=== PATIENT | male | born 1935 | race Caucasian/White ===

== ENCOUNTER 2016-06-03 16:37 | Observation (INO) | payer MEDICARE, OTHER ==
[~2016-06-03 16:37] MED LIST: 50% Dextrose in Water 50 ML Syringe IVPUSH ONE; Sodium Chloride 0.9% 10 ML Syringe FLUSH PRN
--- NOTE | 2016-06-03 16:39 | EDM.PDOC ---
ED HPI NEURO - General Chief Complaint: Neurological Problem Stated Complaint: AMB Time Seen by Provider: 06/03/16 16:39 Source of Information: Reports: Patient, EMS, Family, Old records, RN, RN notes reviewed History Limitations: Reports: Altered mental status, Physical impairment - History of Present Illness INITIAL COMMENTS - FREE TEXT/NARRATIVE: Patient arrives by ambulance with report that patient became confused during the night and rolled out of bed x3. reported patient was confused this morning and had blood sugar of 56. He ate cereal for breakfast and seemed better , but then later in the day became much more confused and fell again and became combative. Family reports several bouts of confusion with multiple falls. Symptom Onset Date: 06/03/16 Timing/Duration: Reports: Getting worse Location (Neuro Complaint): Reports: other (combative) Quality (Neuro Complaint): Reports: other (combative) Severity: severe Improves with: Reports: None Worsens with: Reports: None Associated Symptoms: Reports: no other symptoms - Related Data Allergies/ADRs: Allergies Allergy/AdvReac Type Severity Reaction Status Date / Time No Known Allergies Allergy Verified 04/02/14 20:55 Home Meds: Home Meds Aspirin [Halfprin] 81 mg PO DAILY 10/07/13 [History] Docusate Sodium [Colace] 50 mg PO DAILY 10/07/13 [History] Multivitamin [Multi Vitamin Daily] 1 tab PO DAILY 10/07/13 [History] Tamsulosin [Tamsulosin 24 Hr] 0.4 mg PO DAILY 10/07/13 [History] Phenazopyridine [Pyridium] 200 mg PO TID PRN 04/02/14 [History] Solifenacin Succinate [Vesicare] 10 mg PO DAILY 04/02/14 [History] Fluticasone/Salmeterol [Advair 500-50] 1 puff INH BID 07/17/14 [History] Diltiazem [Dilacor XR] 240 mg PO DAILY 06/03/16 [History] Furosemide [Furosemide] 20 mg PO DAILY 06/03/16 [History] Warfarin Sodium [Jantoven] 5 mg PO DAILY 06/03/16 [History] glyBURIDE [Micronase] 5 mg PO DAILY 06/03/16 [History] Social & Family History - Family History Family Medical History: Noncontributory - Tobacco Use Smoking Status *Q: Never Smoker Years of Tobacco use: 40 Used Tobacco, but Quit: Yes Month Tobacco Last Used: october Second Hand Smoke Exposure: No - Alcohol Use Days Per Week of Alcohol Use: 0 - Recreational Drug Use Recreational Drug Use: No - Living Situation & Occupation Living situation: Reports: with family Occupation: retired ED ROS GENERAL - Review of Systems Review Of Systems: ROS reveals no pertinent complaints other than HPI. ED EXAM, NEURO - Physical Exam Exam: See Below Exam Limited By: Uncooperative (on arrival combative with hypoglycemia.) General Appearance: other (obese, confused, combative, and actively vomiting. ) Eye Exam: bilateral eye: normal inspection Ears: normal external exam, normal canal, hearing grossly normal, normal TMs Nose: normal inspection, normal mucosa, no blood Throat/Mouth: Other (dry oral membranes) Head Exam: atraumatic, normocephalic Neck: normal inspection, supple, non-tender, full range of motion Respiratory/Chest: other (decreased sounds bilateral bases otherwise clear. ) Cardiovascular: regular rate, rhythm (without murmur) GI/Abdominal: normal bowel sounds, non tender, no distention, other (obese. ) Neurological: other (confused and combative on arrival. Richy and cooperative after Dextrose 50% 1 amp IVP and blood sugar improved from 49 to 193. No deficits. ) Extremities: normal range of motion (full to extremities, back and neck. ) Skin Exam: Other (multiple bruises and superficial abrasions to head, bilateral upper and lower extremities in various stages from subacute to acute. ) EKG INTERPRETATION EKG Date: 06/03/16 Time: 17:01 Rhythm: other (sinus rhythm) Rate (beats/min): 74 [place]: normal P-wave: present QRS: RBBB ST-T: normal QT: normal Course - Vital Signs Last Recorded V/S: Last Vital Signs Temp 36.2 C 06/03/16 16:55 Pulse 75 06/03/16 16:55 Resp 20 06/03/16 16:55 BP 121/66 06/03/16 16:55 Pulse Ox 94 L 06/03/16 16:55 - Orders/Labs/Meds Orders: Active Orders 24 hr Category Date Time Status EKG 12 Lead [EKG Documentation Completion] [RC] STAT Care 06/03/16 16:34 Active Overnight Pulse Oximetry [RC] Click To Edit Care 06/03/16 16:35 Active Peripheral IV Care [RC] . DIRECTED Care 06/03/16 16:35 Active Chest 1V Frontal [CR] Stat Exams 06/03/16 16:34 Taken Head wo Cont [CT] Stat Exams 06/03/16 16:37 Taken CULTURE BLOOD [BC] Stat Lab 06/03/16 16:50 Received CULTURE BLOOD [BC] Stat Lab 06/03/16 16:52 Received Sodium Chloride 0.9% [Normal Saline] 1,000 ml Med 06/03/16 17:43 Active IV .BOLUS Sodium Chloride 0.9% [Saline Flush] Med 06/03/16 16:35 Active 10 ml FLUSH ASDIRECTED PRN Blood Culture x2 Reflex Set [OM.PC] Stat Oth 06/03/16 16:35 Ordered Peripheral IV Insertion Adult [OM.PC] Stat Oth 06/03/16 16:34 Ordered Pulse Oximetry Continuous Monitoring [OM.PC] Routine Oth 06/03/16 16:35 Ordered RT Supplemental Oxygen Titration [RESPCARE] Stat Oth 06/03/16 16:35 Active Medication Orders Sodium Chloride (Normal Saline) 1,000 mls @ 999 mls/hr IV .BOLUS ONE Stop: 06/03/16 18:43 Last Admin: 06/03/16 18:05 Dose: 999 mls/hr Sodium Chloride (Saline Flush) 10 ml FLUSH ASDIRECTED PRN PRN Reason: Keep Vein Open Labs: Laboratory Tests 06/03/16 06/03/16 06/03/16 Range/Units 16:47 16:50 16:50 WBC 8.0 (5.0-10.0) 10^3/uL RBC 4.17 L (4.6-6.2) 10^6/uL Hgb 11.2 L (14.0-18.0) g/dL Hct 36.6 L (40.0-54.0) % MCV 87.8 (80-100) fL MCH 26.9 L (27.0-34.0) pg MCHC 30.6 L (33.0-35.0) g/dL Plt Count 222 (150-450) 10^3/uL Neut % (Auto) 82.2 H (42.2-75.2) % Lymph % (Auto) 7.2 L (20.5-50.1) % Coke % (Auto) 10.0 H (2-8) % Eos % (Auto) 0.3 L (1.0-3.0) % Baso % (Auto) 0.3 (0.0-1.0) % PT (9.0-12.0) SEC INR (0.9-1.2) Sodium 135 (135-145) mmol/L Potassium 3.6 (3.6-5.0) mmol/L Chloride 99 L (101-111) mmol/L Carbon Dioxide 25.0 (21.0-31.0) mmol/L Anion Gap 14.6 BUN 28 H (7-18) mg/dL Creatinine 2.3 H (0.6-1.3) mg/dL Est Cr Clr Drug Dosing 24.37 mL/min Estimated GFR (MDRD) 27 BUN/Creatinine Ratio 12.17 Glucose 172 H (74-105) mg/dL POC Glucose 193 H (83-110) mg/dl Lactic Acid (0.5-2.2) mmol/L Calcium 7.9 L (8.4-10.2) mg/dl Total Bilirubin 0.6 (0.2-1.0) mg/dL AST 154 H (10-42) IU/L ALT 64 H (10-60) IU/L Alkaline Phosphatase 113 (42-121) IU/L Ammonia (11-35) umol/L Creatine Kinase (26-174) IU/L Creatine Kinase Index (0-2.4) % CK-MB (CK-2) (0.4-4.7) ng/mL Troponin I < 0.02 (0.00-0.02) ng/ml B-Natriuretic Peptide 22 (0-100) pg/ml Total Protein 6.0 L (6.7-8.2) g/dl Albumin 3.0 L (3.2-5.5) g/dl Globulin 3.0 Albumin/Globulin Ratio 1.00 Amylase 102 H (28-100) U/L Lipase 31 (22-51) U/L Urine Color (YELLOW) Urine Appearance (CLEAR) Urine pH (5.0-9.0) Ur Specific [place] (1.005-1.030) Urine Protein (NEGATIVE) Urine Glucose (UA) (NEGATIVE) Urine Ketones (NEGATIVE) Urine Occult Blood (NEGATIVE) Urine Nitrite (NEGATIVE) Urine Bilirubin (NEGATIVE) Urine Urobilinogen (0.2-1.0) mg/dL Ur Leukocyte Esterase (NEGATIVE) Urine RBC /HPF Urine WBC (0-5/HPF) /HPF Ur Epithelial Cells /HPF Uric Acid Crystals Amorphous Sediment (0/HPF) /HPF Urine Bacteria (0-FEW/HPF) /HPF Hyaline Casts /LPF Urine Opiates Screen (NEGATIVE) Ur Oxycodone Screen (NEGATIVE) Urine Methadone Screen (NEGATIVE) Ur Barbiturates Screen (NEGATIVE) U Tricyclic Antidepress (NEGATIVE) Ur Phencyclidine Scrn (NEGATIVE) Ur Amphetamine Screen (NEGATIVE) U Methamphetamines Scrn (NEGATIVE) Urine MDMA Screen (NEGATIVE) U Benzodiazepines Scrn (NEGATIVE) Urine Cocaine Screen (NEGATIVE) U Marijuana (THC) Screen (NEGATIVE) Ethyl Alcohol < 5 mg/dL 06/03/16 06/03/16 06/03/16 Range/Units 16:50 16:50 16:50 WBC (5.0-10.0) 10^3/uL RBC (4.6-6.2) 10^6/uL Hgb (14.0-18.0) g/dL Hct (40.0-54.0) % MCV (80-100) fL MCH (27.0-34.0) pg MCHC (33.0-35.0) g/dL Plt Count (150-450) 10^3/uL Neut % (Auto) (42.2-75.2) % Lymph % (Auto) (20.5-50.1) % Coke % (Auto) (2-8) % Eos % (Auto) (1.0-3.0) % Baso % (Auto) (0.0-1.0) % PT (9.0-12.0) SEC INR (0.9-1.2) Sodium (135-145) mmol/L Potassium (3.6-5.0) mmol/L Chloride (101-111) mmol/L Carbon Dioxide (21.0-31.0) mmol/L Anion Gap BUN (7-18) mg/dL Creatinine (0.6-1.3) mg/dL Est Cr Clr Drug Dosing mL/min Estimated GFR (MDRD) BUN/Creatinine Ratio Glucose (74-105) mg/dL POC Glucose (83-110) mg/dl Lactic Acid 2.0 (0.5-2.2) mmol/L Calcium (8.4-10.2) mg/dl Total Bilirubin (0.2-1.0) mg/dL AST (10-42) IU/L ALT (10-60) IU/L Alkaline Phosphatase (42-121) IU/L Ammonia 41 H (11-35) umol/L Creatine Kinase 779 H (26-174) IU/L Creatine Kinase Index 2.0 (0-2.4) % CK-MB (CK-2) 15.60 H (0.4-4.7) ng/mL Troponin I (0.00-0.02) ng/ml B-Natriuretic Peptide (0-100) pg/ml Total Protein (6.7-8.2) g/dl Albumin (3.2-5.5) g/dl Globulin Albumin/Globulin Ratio Amylase (28-100) U/L Lipase (22-51) U/L Urine Color (YELLOW) Urine Appearance (CLEAR) Urine pH (5.0-9.0) Ur Specific [place] (1.005-1.030) Urine Protein (NEGATIVE) Urine Glucose (UA) (NEGATIVE) Urine Ketones (NEGATIVE) Urine Occult Blood (NEGATIVE) Urine Nitrite (NEGATIVE) Urine Bilirubin (NEGATIVE) Urine Urobilinogen (0.2-1.0) mg/dL Ur Leukocyte Esterase (NEGATIVE) Urine RBC /HPF Urine WBC (0-5/HPF) /HPF Ur Epithelial Cells /HPF Uric Acid Crystals Amorphous Sediment (0/HPF) /HPF Urine Bacteria (0-FEW/HPF) /HPF Hyaline Casts /LPF Urine Opiates Screen (NEGATIVE) Ur Oxycodone Screen (NEGATIVE) Urine Methadone Screen (NEGATIVE) Ur Barbiturates Screen (NEGATIVE) U Tricyclic Antidepress (NEGATIVE) Ur Phencyclidine Scrn (NEGATIVE) Ur Amphetamine Screen (NEGATIVE) U Methamphetamines Scrn (NEGATIVE) Urine MDMA Screen (NEGATIVE) U Benzodiazepines Scrn (NEGATIVE) Urine Cocaine Screen (NEGATIVE) U Marijuana (THC) Screen (NEGATIVE) Ethyl Alcohol mg/dL 06/03/16 06/03/16 06/03/16 Range/Units 16:50 17:00 17:00 WBC (5.0-10.0) 10^3/uL RBC (4.6-6.2) 10^6/uL Hgb (14.0-18.0) g/dL Hct (40.0-54.0) % MCV (80-100) fL MCH (27.0-34.0) pg MCHC (33.0-35.0) g/dL Plt Count (150-450) 10^3/uL Neut % (Auto) (42.2-75.2) % Lymph % (Auto) (20.5-50.1) % [place] % (Auto) (2-8) % Eos % (Auto) (1.0-3.0) % Baso % (Auto) (0.0-1.0) % PT 32.9 H (9.0-12.0) SEC INR 3.3 H (0.9-1.2) Sodium (135-145) mmol/L Potassium (3.6-5.0) mmol/L Chloride (101-111) mmol/L Carbon Dioxide (21.0-31.0) mmol/L Anion Gap BUN (7-18) mg/dL Creatinine (0.6-1.3) mg/dL Est Cr Clr Drug Dosing mL/min Estimated GFR (MDRD) BUN/Creatinine Ratio Glucose (74-105) mg/dL POC Glucose (83-110) mg/dl Lactic Acid (0.5-2.2) mmol/L Calcium (8.4-10.2) mg/dl Total Bilirubin (0.2-1.0) mg/dL AST (10-42) IU/L ALT (10-60) IU/L Alkaline Phosphatase (42-121) IU/L Ammonia (11-35) umol/L Creatine Kinase (26-174) IU/L Creatine Kinase Index (0-2.4) % CK-MB (CK-2) (0.4-4.7) ng/mL Troponin I (0.00-0.02) ng/ml B-Natriuretic Peptide (0-100) pg/ml Total Protein (6.7-8.2) g/dl Albumin (3.2-5.5) g/dl Globulin Albumin/Globulin Ratio Amylase (28-100) U/L Lipase (22-51) U/L Urine Color Yellow (YELLOW) Urine Appearance Clear (CLEAR) Urine pH 5.0 (5.0-9.0) Ur Specific [place] 1.015 (1.005-1.030) Urine Protein 30 H (NEGATIVE) Urine Glucose (UA) Negative (NEGATIVE) Urine Ketones Negative (NEGATIVE) Urine Occult Blood Small H (NEGATIVE) Urine Nitrite Negative (NEGATIVE) Urine Bilirubin Negative (NEGATIVE) Urine Urobilinogen 0.2 (0.2-1.0) mg/dL Ur Leukocyte Esterase Negative (NEGATIVE) Urine RBC 0-5 /HPF Urine WBC 10-20 H (0-5/HPF) /HPF Ur Epithelial Cells Few /HPF Uric Acid Crystals Few Amorphous Sediment Few (0/HPF) /HPF Urine Bacteria Few (0-FEW/HPF) /HPF Hyaline Casts Few H /LPF Urine Opiates Screen Negative (NEGATIVE) Ur Oxycodone Screen Negative (NEGATIVE) Urine Methadone Screen Negative (NEGATIVE) Ur Barbiturates Screen Negative (NEGATIVE) U Tricyclic Antidepress Negative (NEGATIVE) Ur Phencyclidine Scrn Negative (NEGATIVE) Ur Amphetamine Screen Negative (NEGATIVE) U Methamphetamines Scrn Negative (NEGATIVE) Urine MDMA Screen Negative (NEGATIVE) U Benzodiazepines Scrn Negative (NEGATIVE) Urine Cocaine Screen Negative (NEGATIVE) U Marijuana (THC) Screen Negative (NEGATIVE) Ethyl Alcohol mg/dL Meds: Medications Generic Name Dose Route Start Last Admin Trade Name Freq PRN Reason Stop Dose Admin Sodium Chloride 1,000 mls @ 999 mls/hr 06/03/16 17:43 06/03/16 18:05 Normal Saline IV 06/03/16 18:43 999 mls/hr .BOLUS ONE Administration Sodium Chloride 10 ml 06/03/16 16:35 Saline Flush FLUSH ASDIRECTED PRN Keep Vein Open Discontinued Medications Generic Name Dose Route Start Last Admin Trade Name Freq PRN Reason Stop Dose Admin Dextrose/Water 50 ml 06/03/16 16:36 06/03/16 16:50 Dextrose 50% In Water IVPUSH 06/03/16 16:37 50 ml ONETIME ONE Administration Potassium Chloride/Dextrose/Sod Cl Confirm 06/03/16 16:43 06/03/16 17:32 D5 1/2 Ns W/ 20 Meq/L Kcl Administered 06/03/16 16:44 999 ml Dose Administration 1,000 mls @ as directed .ROUTE .STK-MED ONE Lorazepam Confirm 06/03/16 16:44 06/03/16 16:48 Ativan Administered 06/03/16 16:45 2 mg Dose Administration 2 mg .ROUTE .[place] ONE - Radiology Interpretation Free Text/Narrative:: CT had: Per rad report shows no intracranial process. No acute intracranial process. No sign of CVA. Senescent changes of the brain are present. Chest x-ray: Per rad report shows no active disease of the chest. No significant interval change when compared to the 07/17/14 film. Departure - Departure Time of Disposition: 18:25 (Admit to Dr. Novoa) Disposition: Admitted As Inpatient 66 Condition: serious Clinical Impression: Hypoglycemia associated with type 2 diabetes mellitus, Dehydration, Prerenal azotemia, Contusion, multiple sites, Abrasion, multiple sites, Frequent falls Forms: ED Department Discharge - My Orders Last 24 Hours: My Active Orders 06/03/16 16:34 EKG 12 Lead [EKG Documentation Completion] [RC] STAT Chest 1V Frontal [CR] Stat Peripheral IV Insertion Adult [OM.PC] Stat 06/03/16 16:35 Overnight Pulse Oximetry [RC] Click To Edit Peripheral IV Care [RC] . DIRECTED Sodium Chloride 0.9% [Saline Flush] 10 ml FLUSH ASDIRECTED PRN Blood Culture x2 Reflex Set [OM.PC] Stat Pulse Oximetry Continuous Monitoring [OM.PC] Routine RT Supplemental Oxygen Titration [RESPCARE] Stat 06/03/16 16:37 Head wo Cont [CT] Stat 06/03/16 16:50 CULTURE BLOOD [BC] Stat 06/03/16 16:52 CULTURE BLOOD [BC] Stat 06/03/16 17:43 Sodium Chloride 0.9% [Normal Saline] 1,000 ml IV .BOLUS - Assessment/Plan Last 24 Hours: My Active Orders 06/03/16 16:34 EKG 12 Lead [EKG Documentation Completion] [RC] STAT Chest 1V Frontal [CR] Stat Peripheral IV Insertion Adult [OM.PC] Stat 06/03/16 16:35 Overnight Pulse Oximetry [RC] Click To Edit Peripheral IV Care [RC] . DIRECTED Sodium Chloride 0.9% [Saline Flush] 10 ml FLUSH ASDIRECTED PRN Blood Culture x2 Reflex Set [OM.PC] Stat Pulse Oximetry Continuous Monitoring [OM.PC] Routine RT Supplemental Oxygen Titration [RESPCARE] Stat 06/03/16 16:37 Head wo Cont [CT] Stat 06/03/16 16:50 CULTURE BLOOD [BC] Stat 06/03/16 16:52 CULTURE BLOOD [BC] Stat 06/03/16 17:43 Sodium Chloride 0.9% [Normal Saline] 1,000 ml IV .BOLUS
[2016-06-03] MEDS ORDERED: D5 1/2 NS w/ 20 mEq/L KCl 1,000 ML ONE (16:43)
[2016-06-03] MEDS ORDERED: LORazepam 2 MG/ML Syringe ONE (16:44)
[2016-06-03 17:21] LABS: CHLORIDE,CL 99 mmol/L (101-111); SODIUM,NA 135 mmol/L (135-145)
[2016-06-03] MEDS ORDERED: Sodium Chloride 0.9% 1,000 ML IV ONE (17:43)
--- NOTE | 2016-06-03 20:01 | PCM.HP ---
H&P History of Present Illness - General Date of Service: 06/03/16 Admit Problem/Dx: confused, agitated, hypoglycemia Source of Information: Patient, Family, Other (ER report) - History of Present Illness Initial Comments - Free Text/Narative: the patient is an 81-year-old gentleman who presented with the one day history of confusion, agitation, hypoglycemia The patient lives with the . He was noted to have confusion the night before admission that was improving during the day but by the evening got worse. he was noted to have hypoglycemia even despite eating. Blood sugars were 56 and then 49. The patient was brought into the emergency room by EMS services. He was given multiple doses of D50. The patient was noted to have agitation and combative behavior in the emergency room. He was given Ativan. His mental status has improved. - Related Data Allergies/Adverse Reactions: Allergies Allergy/AdvReac Type Severity Reaction Status Date / Time No Known Allergies Allergy Verified 06/03/16 20:13 Home Medications: Home Meds Aspirin [Halfprin] 81 mg PO DAILY 10/07/13 [History] Docusate Sodium [Colace] 50 mg PO DAILY 10/07/13 [History] Multivitamin [Multi Vitamin Daily] 1 tab PO DAILY 10/07/13 [History] Tamsulosin [Tamsulosin 24 Hr] 0.4 mg PO DAILY 10/07/13 [History] Phenazopyridine [Pyridium] 200 mg PO TID PRN 04/02/14 [History] Solifenacin Succinate [Vesicare] 10 mg PO DAILY 04/02/14 [History] Fluticasone/Salmeterol [Advair 500-50] 1 puff INH BID 07/17/14 [History] Diltiazem [Dilacor XR] 240 mg PO DAILY 06/03/16 [History] Furosemide [Furosemide] 20 mg PO DAILY 06/03/16 [History] Warfarin Sodium [Jantoven] 2.5 mg PO DAILY 06/03/16 [History] glyBURIDE [Micronase] 5 mg PO DAILY 06/03/16 [History] Past Medical History HEENT History: Reports: Glaucoma Cardiovascular History: Reports: Afib, Other (see below) (chf) Respiratory History: Reports: COPD, SOB, Other (see below) (h/o lung cancer, s/ p partial pneumonectomy) Genitourinary History: Reports: Retention, urinary, Other (see below) (prostate cancer, bladder ca) Musculoskeletal History: Reports: Arthritis Endocrine/Metabolic History: Reports: Diabetes, type II, Obesity/BMI 30+ - Past Surgical History Respiratory Surgical History: Reports: Lung Resection Musculoskeletal Surgical History: Reports: Knee replacement, Other (see below) Other Musculoskeletal Surgeries/Procedures:: back surgery Social & Family History - Family History Family Medical History: Noncontributory Cardiac: Reports: Other (see below) (lung cancer, sister) - Tobacco Use Smoking Status *Q: Never Smoker Years of Tobacco use: 40 Used Tobacco, but Quit: Yes Month Tobacco Last Used: october Second Hand Smoke Exposure: No - Caffeine Use Caffeine Use: Reports: Coffee, Tea - Alcohol Use Days Per Week of Alcohol Use: 0 - Recreational Drug Use Recreational Drug Use: No - Living Situation & Occupation Living situation: Reports: with family Occupation: retired H&P Review of Systems - Review of Systems: Review Of Systems: See Below Free Text/Narrative: Review of system obtained from Daughters over the phone has been living with , independent usually recently had no headache, no fever, daughter noted more knee pain and maybe some labored breathing with activity lately General: Denies: fever, chills Pulmonary: Reports: shortness of breath. Denies: wheezing, pleuritic chest pain , sputum Cardiovascular: Denies: chest pain Gastrointestinal: Reports: Other. Denies: Abdominal pain Genitourinary: Reports: other (recently evaluated by the urology). Denies: dysuria Skin: Reports: bruising, other (Coumadin has been adjusted it was supratherapeutic) Psychiatric: Reports: confusion, agitation, other (aggressive behavior) Neurological: Reports: confusion, other (following the above bed). Denies: seizure, syncope, tremors Hematologic/Lymphatic: Reports: anemia, easy bruising Immunologic: Reports: no symptoms Exam - Exam Exam: See Below - Vital Signs Vital Signs: Last Vital Signs Temp 36.2 C 06/03/16 16:55 Pulse 75 06/03/16 16:55 Resp 20 06/03/16 16:55 BP 121/66 06/03/16 16:55 Pulse Ox 94 L 06/03/16 16:55 Weight: 114.305 kg - Exam Quality Assessment: No: supplemental oxygen General: alert, oriented HEENT: EOMI Neck: supple Lungs: Clear to auscultation, Decreased breath sounds. No: Rales, Rhonchi Cardiovascular: regular rate, regular rhythm Abdomen: normal bowel sounds, soft, other (morbidly obese) Extremities: No: edema Skin: warm, dry, ecchymosis, other (multiple bruises on the arms and legs) Neuro Extensive - Mental Status: alert, oriented x3, normal cognition. No: disorientation to person Neuro Extensive - Motor, Sensory, Reflexes: other (moving all extremities well) . No: dysarthria, receptive aphasia, expressive aphasia Psychiatric: alert, normal affect, normal mood. No: agitated (not currently but earlier he was noted to have agitation) - Patient Data Result Diagrams: 06/03/16 16:50 06/03/16 16:50 Imaging Impressions last 24 hrs: chest x-ray per reading "no active disease of the chest" CT head are reading "no acute intracranial process" EKG per my reading shows sinus rhythm with right bundle branch block *Q Meaningful Use (ADM) - VTE *Q VTE Criteria *Q: - Stroke *Q Stroke Criteria *Q: - AMI *Q AMI Criteria *Q: - Problem List (1) Acute encephalopathy SNOMED Code(s): 0955328 ICD Code: G93.40 - ENCEPHALOPATHY, UNSPECIFIED Status: Acute Current Visit: Yes (2) Abrasion, multiple sites SNOMED Code(s): 518147838 ICD Code: T14.8 - OTHER INJURY OF UNSPECIFIED BODY REGION Status: Acute Current Visit: Yes (3) Dehydration SNOMED Code(s): 05049711 ICD Code: E86.0 - DEHYDRATION Status: Acute Current Visit: Yes (4) Hypoglycemia associated with type 2 diabetes mellitus SNOMED Code(s): 752381264, 586370734 ICD Code: E11.649 - TYPE 2 DIABETES MELLITUS WITH HYPOGLYCEMIA WITHOUT COMA Status: Acute Current Visit: Yes Problem List Initiated/Reviewed/Updated: Yes Orders Last 24hrs: Medication Orders Sodium Chloride (Saline Flush) 10 ml FLUSH ASDIRECTED PRN PRN Reason: Keep Vein Open Assessment/Plan Comment:: 1. acute encephalopathy This might relate to hypoglycemia, dehydration. The patient received Ativan in the emergency room and now cold her take. Monitor closely, address other issues. we'll have physical therapy and occupational therapy to evaluate 2. hypoglycemia The patient has been on glyburide which can be long acting. Will give the patient IV fluid with d5 follow blood sugars and give further dextrose if hypoglycemic hold glyburide 3.acute renal failure This is likely secondary to diuretics Will hold the Lasix Give IV fluids Recheck electrolytes and renal function in the morning 4. Elevated CPK, possible mild rhabdomyolysis due to falls We'll hydrate the patient and recheck CPK in the morning 5. mildly elevated AST ALT this is likely secondary to obesity Followup as outpatient 6. history of atrial fibrillation Continue Cardizem, follow INR and adjust Coumadin as needed for target INR 2-3 7. DVT prophylaxis will be with Coumadin
[2016-06-03] MEDS ORDERED: Non-Formulary Medication 1 Each (Fluticasone/Salmeterol [Advair 500-50] 1 PUFF) INH SCH (21:00)
[2016-06-03] MEDS: Dextrose 5%-0.9% NaCl with KCl 1,000 ML IV SCH (21:05)
[2016-06-03] MEDS ORDERED: 50% Dextrose in Water 50 ML Syringe IVPUSH ONE (22:07)
[2016-06-03] MEDS ORDERED: Acetaminophen 325 MG Tab PO PRN (22:08)
[2016-06-03] MEDS ORDERED: Zolpidem 5 MG Tab PO PRN (22:08)
[2016-06-03] MEDS ORDERED: Docusate Sodium 100 MG Cap PO PRN (22:08)
[2016-06-03] MEDS: Multivitamins,Therapeutic Tab PO SCH (22:40)
[2016-06-04] MEDS: Insulin Aspart 100 Units/ML 3 ML Pen SUBCUT SCH ×3 (07:58→17:14)
[2016-06-04] MEDS: Diltiazem 240 MG Cap.CD PO SCH (09:21)
[2016-06-04] MEDS: Multivitamins,Therapeutic Tab PO SCH (09:21)
[2016-06-04] MEDS: Dextrose 5%-0.9% NaCl with KCl 1,000 ML IV SCH (10:30)
--- NOTE | 2016-06-04 11:13 | PCM.PN ---
- General Info Date of Service: 06/04/16 Admission Dx/Problem (Free Text): confused, agitated, hypoglycemia Subjective Update: no significant confusion during the night. He is feeling good. Remained on IV dextrose. Had low blood sugar this morning but was asymptomatic. Denies chest pain, no shortness of breath, no fever or chills. Still unsteady on his feet. Discussed with daughter about home care, fall prevention. Functional Status: Reports: pain controlled - Review of Systems General: Denies: fever Pulmonary: Denies: shortness of breath Cardiovascular: Denies: chest pain Gastrointestinal: Denies: Abdominal pain - Patient Data Vitals - most recent: Last Vital Signs Temp 36.7 C 06/04/16 10:49 Pulse 86 06/04/16 10:49 Resp 20 06/04/16 10:49 BP 137/76 06/04/16 10:49 Pulse Ox 93 L 06/04/16 10:49 Weight - most recent: 110.733 kg I&O - last 24 hours: Intake & Output 06/03/16 06/04/16 06/04/16 22:59 06:59 14:59 Intake Total 300 Balance 300 Lab Results last 24 hrs: Laboratory Results - last 24 hr 06/03/16 06/04/16 06/04/16 Range/Units 23:16 02:59 05:52 WBC 6.4 (5.0-10.0) 10^3/uL RBC 4.15 L (4.6-6.2) 10^6/uL Hgb 11.2 L (14.0-18.0) g/dL Hct 36.3 L (40.0-54.0) % MCV 87.5 (80-100) fL MCH 27.0 (27.0-34.0) pg MCHC 30.9 L (33.0-35.0) g/dL Plt Count 203 (150-450) 10^3/uL Neut % (Auto) 71.5 (42.2-75.2) % Lymph % (Auto) 13.8 L (20.5-50.1) % [place] % (Auto) 12.7 H (2-8) % Eos % (Auto) 1.7 (1.0-3.0) % Baso % (Auto) 0.3 (0.0-1.0) % PT (9.0-12.0) SEC INR (0.9-1.2) Sodium (135-145) mmol/L Potassium (3.6-5.0) mmol/L Chloride (101-111) mmol/L Carbon Dioxide (21.0-31.0) mmol/L Anion Gap BUN (7-18) mg/dL Creatinine (0.6-1.3) mg/dL Est Cr Clr Drug Dosing mL/min Estimated GFR (MDRD) Glucose (74-105) mg/dL POC Glucose 116 H 96 (83-110) mg/dl Calcium (8.4-10.2) mg/dl Creatine Kinase (26-174) IU/L 06/04/16 06/04/16 06/04/16 Range/Units 05:52 05:52 07:36 WBC (5.0-10.0) 10^3/uL RBC (4.6-6.2) 10^6/uL Hgb (14.0-18.0) g/dL Hct (40.0-54.0) % MCV (80-100) fL MCH (27.0-34.0) pg MCHC (33.0-35.0) g/dL Plt Count (150-450) 10^3/uL Neut % (Auto) (42.2-75.2) % Lymph % (Auto) (20.5-50.1) % [place] % (Auto) (2-8) % Eos % (Auto) (1.0-3.0) % Baso % (Auto) (0.0-1.0) % PT 30.6 H (9.0-12.0) SEC INR 3.0 H (0.9-1.2) Sodium 137 (135-145) mmol/L Potassium 3.8 (3.6-5.0) mmol/L Chloride 103 (101-111) mmol/L Carbon Dioxide 26.0 (21.0-31.0) mmol/L Anion Gap 11.8 BUN 25 H (7-18) mg/dL Creatinine 2.1 H (0.6-1.3) mg/dL Est Cr Clr Drug Dosing 26.69 mL/min Estimated GFR (MDRD) 30 Glucose 65 L (74-105) mg/dL POC Glucose 63 L (83-110) mg/dl Calcium 7.7 L (8.4-10.2) mg/dl Creatine Kinase 561 H (26-174) IU/L 06/04/16 Range/Units 10:54 WBC (5.0-10.0) 10^3/uL RBC (4.6-6.2) 10^6/uL Hgb (14.0-18.0) g/dL Hct (40.0-54.0) % MCV (80-100) fL MCH (27.0-34.0) pg MCHC (33.0-35.0) g/dL Plt Count (150-450) 10^3/uL Neut % (Auto) (42.2-75.2) % Lymph % (Auto) (20.5-50.1) % [place] % (Auto) (2-8) % Eos % (Auto) (1.0-3.0) % Baso % (Auto) (0.0-1.0) % PT (9.0-12.0) SEC INR (0.9-1.2) Sodium (135-145) mmol/L Potassium (3.6-5.0) mmol/L Chloride (101-111) mmol/L Carbon Dioxide (21.0-31.0) mmol/L Anion Gap BUN (7-18) mg/dL Creatinine (0.6-1.3) mg/dL Est Cr Clr Drug Dosing mL/min Estimated GFR (MDRD) Glucose (74-105) mg/dL POC Glucose 94 (83-110) mg/dl Calcium (8.4-10.2) mg/dl Creatine Kinase (26-174) IU/L Med Orders - Current: Current Medications Acetaminophen (Tylenol) 650 mg PO Q4H PRN PRN Reason: Pain (Mild 1-3)/fever Last Admin: 06/04/16 05:32 Dose: 650 mg Aspirin (Halfprin) 81 mg PO DAILY [facility] Diltiazem HCl (Cardizem Cd) 240 mg PO DAILY [facility] Last Admin: 06/04/16 09:21 Dose: 240 mg Docusate Sodium (Colace) 100 mg PO BID PRN PRN Reason: Constipation Potassium Chloride/Dextrose/Sod Cl (D5 Ns With 20 Meq Kcl) 1,000 mls @ 75 mls/ hr IV ASDIRECTED [facility] Last Admin: 06/04/16 10:30 Dose: 75 mls/hr Insulin Aspart (Novolog) 0 unit SUBCUT TIDAC [facility] PRN Reason: Protocol Last Admin: 06/04/16 07:58 Dose: Not Given Multivitamins (Thera) 1 each PO DAILY [facility] Last Admin: 06/04/16 09:21 Dose: 1 each Non-Formulary Medication (Fluticasone/Salmeterol [Advair 500-50]) 1 puff INH BID [facility] Tamsulosin HCl (Flomax) 0.4 mg PO DAILY [facility] Warfarin Sodium (Pharmacy To Dose - Warfarin) 1 dose .XX ASDIRECTED [facility] Zolpidem Tartrate (Ambien) 5 mg PO BEDTIME PRN PRN Reason: Sleep Discontinued Medications Dextrose/Water (Dextrose 50% In Water) 50 ml IVPUSH ONETIME ONE Stop: 06/03/16 16:37 Last Admin: 06/03/16 16:50 Dose: 50 ml Dextrose/Water (Dextrose 50% In Water) 25 ml IVPUSH ONETIME ONE Stop: 06/03/16 22:08 Last Admin: 06/03/16 22:40 Dose: 25 ml Potassium Chloride/Dextrose/Sod Cl (D5 1/2 Ns W/ 20 Meq/L Kcl) Confirm Administered Dose 1,000 mls @ as directed .ROUTE .STK-MED ONE Stop: 06/03/16 16:44 Last Admin: 06/03/16 17:32 Dose: 999 ml Sodium Chloride (Normal Saline) 1,000 mls @ 999 mls/hr IV .BOLUS ONE Stop: 06/03/16 18:43 Last Admin: 06/03/16 18:05 Dose: 999 mls/hr Lorazepam (Ativan) Confirm Administered Dose 2 mg .ROUTE .STK-MED ONE Stop: 06/03/16 16:45 Last Admin: 06/03/16 16:48 Dose: 2 mg Sodium Chloride (Saline Flush) 10 ml FLUSH ASDIRECTED PRN PRN Reason: Keep Vein Open - Exam Quality Assessment: No: supplemental oxygen General: alert, oriented Neck: supple Lungs: Clear to auscultation, Decreased breath sounds Cardiovascular: regular rate, regular rhythm Abdomen: bowel sounds present, soft, no tenderness, other (morbidly obese) Extremities: no edema Skin: ecchymosis - Problem List & Annotations (1) Acute encephalopathy SNOMED Code(s): 5822676 Code(s): G93.40 - ENCEPHALOPATHY, UNSPECIFIED Status: Acute Current Visit : Yes (2) Abrasion, multiple sites SNOMED Code(s): 067370078 Code(s): T14.8 - OTHER INJURY OF UNSPECIFIED BODY REGION Status: Acute Current Visit: Yes (3) Dehydration SNOMED Code(s): 48321618 Code(s): E86.0 - DEHYDRATION Status: Acute Current Visit: Yes (4) Hypoglycemia associated with type 2 diabetes mellitus SNOMED Code(s): 384319368, 876614732 Code(s): E11.649 - TYPE 2 DIABETES MELLITUS WITH HYPOGLYCEMIA WITHOUT COMA Status: Acute Current Visit: Yes - Problem List Review Problem List Initiated/Reviewed/Updated: Yes - Plan Plan:: 1. acute encephalopathy This might relate to hypoglycemia, dehydration. The patient received Ativan in the emergency room and now cold her take. seems resolved Monitor closely, address other issues. we'll have physical therapy and occupational therapy to evaluate 2. hypoglycemia The patient has been on glyburide which can be long acting. his last hemoglobin A1c was 5.7 in December 2015 Will continue to give the patient IV fluid with d5 follow blood sugars and give further IV dextrose if hypoglycemic hold glyburide 3.acute renal failure Baseline creatinine is 1.35 months prior to admission per [facility] chart This is likely secondary to diuretics Will hold the Lasix we'll continue to Give IV fluids Recheck electrolytes and renal function in the morning 4. Elevated CPK, possible mild rhabdomyolysis due to falls We'll hydrate the patient 5. mildly elevated AST ALT this is likely secondary to obesity Followup as outpatient 6. history of atrial fibrillation Continue Cardizem, follow INR and adjust Coumadin as needed for target INR 2-3 7. DVT prophylaxis will be with Coumadin discussed with daughter at the bedside
[2016-06-04] MEDS: Aspirin 81 MG Tab.EC PO SCH (11:28)
[2016-06-04] MEDS: Tamsulosin 0.4 MG Cap.ER PO SCH (11:41)
[2016-06-04] MEDS ORDERED: Albuterol 0.021% 0.63 MG/3 ML Neb Soln NEB PRN (16:27)
[2016-06-04] MEDS: Formoterol/Mometasone 200-5 MCG 8.8 GM Inhaler IH SCH (23:43)
[2016-06-05] MEDS: Dextrose 5%-0.9% NaCl with KCl 1,000 ML IV SCH (03:15)
--- NOTE | 2016-06-05 07:28 | EKG ---
06/03/2016 - ENEDELIA CANNON - TIME: 5:01 p.m. EKG per my reading shows sinus rhythm at the rate of 74, right bundle branch block. [facility] /[id number]
[2016-06-05] MEDS: Insulin Aspart 100 Units/ML 3 ML Pen SUBCUT SCH ×2 (07:30→12:32)
[2016-06-05 08:37] VITALS: BP 140/71
[2016-06-05] MEDS: Diltiazem 240 MG Cap.CD PO SCH (09:10)
[2016-06-05] MEDS: Aspirin 81 MG Tab.EC PO SCH (09:10)
[2016-06-05] MEDS: Multivitamins,Therapeutic Tab PO SCH (09:10)
[2016-06-05] MEDS: Tamsulosin 0.4 MG Cap.ER PO SCH (09:10)
[2016-06-05] MEDS: Formoterol/Mometasone 200-5 MCG 8.8 GM Inhaler IH SCH (09:12)
[2016-06-05] MEDS ORDERED: Albuterol 0.083% 2.5 MG/3 ML Neb Soln NEB PRN (09:15)
--- NOTE | 2016-06-05 10:16 | PCM.DCSUM1 ---
Discharge Summary - Hospital Course Free Text/Narrative:: 1. acute encephalopathy likely due to hypoglycemia, dehydration. seems resolved 2. hypoglycemia The patient has been on glyburide. his last hemoglobin A1c was 5.7 in December 2015 hypoglycemia resolved bid IV fluid with d5 hold glyburide 3. acute renal failure Baseline creatinine is 1.3 about 5 months prior to admission per [facility] chart This is likely secondary to diuretics Will hold the Lasix Recheck renal function in in a few days as outpatient 4. Elevated CPK, possible mild rhabdomyolysis due to falls was treated with hydration 5. mildly elevated AST ALT this is likely secondary to obesity and fatty infiltrate Followup as outpatient 6. history of atrial fibrillation Continue Cardizem, follow INR and adjust Coumadin as needed for target INR 2-3 7. history of COPD and lung resection I observe how the patient is using his inhalers, I do not think that it is providing any effective for medications into the lungs I recommended to switch to nebulizer delivery form use Pulmicort and perforomist, albuterol p.r.n. - Discharge Data Discharge Date: 06/05/16 Discharge Disposition: Home, Self-Care 01 Condition: Fair - Discharge Diagnosis/Problem(s) (1) Acute encephalopathy SNOMED Code(s): 6185343 ICD Code: G93.40 - ENCEPHALOPATHY, UNSPECIFIED Status: Acute Current Visit: Yes (2) Abrasion, multiple sites SNOMED Code(s): 300288692 ICD Code: T14.8 - OTHER INJURY OF UNSPECIFIED BODY REGION Status: Acute Current Visit: Yes (3) Dehydration SNOMED Code(s): 89530958 ICD Code: E86.0 - DEHYDRATION Status: Acute Current Visit: Yes (4) Hypoglycemia associated with type 2 diabetes mellitus SNOMED Code(s): 501098934, 505778922 ICD Code: E11.649 - TYPE 2 DIABETES MELLITUS WITH HYPOGLYCEMIA WITHOUT COMA Status: Acute Current Visit: Yes (5) COLD, Chronic obstructive lung disease SNOMED Code(s): 75699367 ICD Code: J44.9 - CHRONIC OBSTRUCTIVE PULMONARY DISEASE, UNSPECIFIED Status : Acute Current Visit: No - Patient Instructions Diet: Heart Healthy Diet Activity: As Tolerated - Discharge Plan Prescriptions/Med Rec: Albuterol [IJD: Albuterol] 2.5 mg NEB Q4HRRT PRN #90 nebule PRN Reason: sob, copd Budesonide [Pulmicort] 0.5 mg NEB BIDRT #60 neb Formoterol [Perforomist] 20 mcg NEB BIDRT #60 neb Multivitamins,Therapeutic [Thera] 1 each PO DAILY #30 tablet Home Medications: Home Meds Docusate Sodium [Colace] 100 mg PO DAILY 10/07/13 [History] Tamsulosin [Flomax] 0.4 mg PO BEDTIME 10/07/13 [History] Solifenacin Succinate [Vesicare] 10 mg PO DAILY 04/02/14 [History] Diltiazem [Dilacor XR] 240 mg PO DAILY 06/03/16 [History] Warfarin Sodium [Jantoven] 2.5 mg PO DAILY 06/03/16 [History] [place]-3/DHA/Epa/Fish Oil [Fish Oil 1,000 mg Softgel] 1,000 mg PO DAILY 06/04/16 [History] Albuterol [IJD: Albuterol] 2.5 mg NEB Q4HRRT PRN #90 nebule 06/05/16 [Rx] Aspirin [Halfprin] 81 mg PO DAILY tab.ec 06/05/16 [Rx] Budesonide [Pulmicort] 0.5 mg NEB BIDRT #60 neb 06/05/16 [Rx] Formoterol [Perforomist] 20 mcg NEB BIDRT #60 neb 06/05/16 [Rx] Multivitamins,Therapeutic [Thera] 1 each PO DAILY #30 tablet 06/05/16 [Rx] Referrals: PCP,Unknown [Primary Care Provider] - (in 3-5 days) - Discharge Summary/Plan Comment DC Time >30 min.: No - General Info Date of Service: 06/05/16 Subjective Update: head mild confusion during the night. resolved by the morning He is feeling good. No further hypoglycemia Denies chest pain, no shortness of breath, no fever or chills. Discussed with daughter about home care, fall prevention, nebulizer medications. Functional Status: Reports: pain controlled - Review of Systems General: Denies: fever, weakness Pulmonary: Reports: shortness of breath (chronic), wheezing (chronic) Gastrointestinal: Reports: Other (OBs). Denies: Abdominal pain Neurological: Reports: confusion (resolved) - Patient Data Vitals - Most Recent: Last Vital Signs Temp 37.0 C 06/05/16 08:36 Pulse 79 06/05/16 08:36 Resp 20 06/05/16 08:36 BP 140/71 06/05/16 08:36 Pulse Ox 93 L 06/05/16 08:36 Weight - Most Recent: 110.733 kg I&O - Last 24 hours: Intake & Output 06/04/16 06/05/16 06/05/16 22:59 06:59 14:59 Intake Total 1051 Balance 1051 Lab Results - Last 24 hrs: Laboratory Results - last 24 hr 06/04/16 06/04/16 06/04/16 Range/Units 10:54 16:50 20:34 WBC (5.0-10.0) 10^3/uL RBC (4.6-6.2) 10^6/uL Hgb (14.0-18.0) g/dL Hct (40.0-54.0) % MCV (80-100) fL MCH (27.0-34.0) pg MCHC (33.0-35.0) g/dL Plt Count (150-450) 10^3/uL Neut % (Auto) (42.2-75.2) % Lymph % (Auto) (20.5-50.1) % [place] % (Auto) (2-8) % Eos % (Auto) (1.0-3.0) % Baso % (Auto) (0.0-1.0) % PT (9.0-12.0) SEC INR (0.9-1.2) Sodium (135-145) mmol/L Potassium (3.6-5.0) mmol/L Chloride (101-111) mmol/L Carbon Dioxide (21.0-31.0) mmol/L Anion Gap BUN (7-18) mg/dL Creatinine (0.6-1.3) mg/dL Est Cr Clr Drug Dosing mL/min Estimated GFR (MDRD) Glucose (74-105) mg/dL POC Glucose 94 105 140 H (83-110) mg/dl Calcium (8.4-10.2) mg/dl 06/05/16 06/05/16 06/05/16 Range/Units 00:43 06:12 06:12 WBC 5.8 (5.0-10.0) 10^3/uL RBC 4.18 L (4.6-6.2) 10^6/uL Hgb 11.2 L (14.0-18.0) g/dL Hct 37.3 L (40.0-54.0) % MCV 89.2 (80-100) fL MCH 26.8 L (27.0-34.0) pg MCHC 30.0 L (33.0-35.0) g/dL Plt Count 182 (150-450) 10^3/uL Neut % (Auto) 71.7 (42.2-75.2) % Lymph % (Auto) 11.2 L (20.5-50.1) % [place] % (Auto) 13.3 H (2-8) % Eos % (Auto) 3.5 H (1.0-3.0) % Baso % (Auto) 0.3 (0.0-1.0) % PT (9.0-12.0) SEC INR (0.9-1.2) Sodium 137 (135-145) mmol/L Potassium 4.3 (3.6-5.0) mmol/L Chloride 106 (101-111) mmol/L Carbon Dioxide 23.0 (21.0-31.0) mmol/L Anion Gap 12.3 BUN 32 H (7-18) mg/dL Creatinine 2.8 H (0.6-1.3) mg/dL Est Cr Clr Drug Dosing 20.02 mL/min Estimated GFR (MDRD) 22 Glucose 143 H (74-105) mg/dL POC Glucose 152 H (83-110) mg/dl Calcium 7.6 L (8.4-10.2) mg/dl 06/05/16 06/05/16 Range/Units 06:12 07:59 WBC (5.0-10.0) 10^3/uL RBC (4.6-6.2) 10^6/uL Hgb (14.0-18.0) g/dL Hct (40.0-54.0) % MCV (80-100) fL MCH (27.0-34.0) pg MCHC (33.0-35.0) g/dL Plt Count (150-450) 10^3/uL Neut % (Auto) (42.2-75.2) % Lymph % (Auto) (20.5-50.1) % [place] % (Auto) (2-8) % Eos % (Auto) (1.0-3.0) % Baso % (Auto) (0.0-1.0) % PT 27.3 H (9.0-12.0) SEC INR 2.7 H (0.9-1.2) Sodium (135-145) mmol/L Potassium (3.6-5.0) mmol/L Chloride (101-111) mmol/L Carbon Dioxide (21.0-31.0) mmol/L Anion Gap BUN (7-18) mg/dL Creatinine (0.6-1.3) mg/dL Est Cr Clr Drug Dosing mL/min Estimated GFR (MDRD) Glucose (74-105) mg/dL POC Glucose 134 H (83-110) mg/dl Calcium (8.4-10.2) mg/dl Med Orders - Current: Current Medications Acetaminophen (Tylenol) 650 mg PO Q4H PRN PRN Reason: Pain (Mild 1-3)/fever Last Admin: 06/04/16 05:32 Dose: 650 mg Albuterol (Proventil Neb Soln) 2.5 mg NEB Q4HRRT PRN PRN Reason: sob Aspirin (Halfprin) 81 mg PO DAILY [facility] Last Admin: 06/05/16 09:10 Dose: 81 mg Diltiazem HCl (Cardizem Cd) 240 mg PO DAILY [facility] Last Admin: 06/05/16 09:10 Dose: 240 mg Docusate Sodium (Colace) 100 mg PO BID PRN PRN Reason: Constipation Potassium Chloride/Dextrose/Sod Cl (D5 Ns With 20 Meq Kcl) 1,000 mls @ 75 mls/ hr IV ASDIRECTED [facility] Last Admin: 06/05/16 03:15 Dose: 75 mls/hr Insulin Aspart (Novolog) 0 unit SUBCUT TIDAC [facility] PRN Reason: Protocol Last Admin: 06/05/16 07:30 Dose: Not Given Mometasone Furoate/Formoterol Fumar (Dulera 200-5 Mcg) 2 puff IH BID [facility] Last Admin: 06/05/16 09:12 Dose: 2 puff Multivitamins (Thera) 1 each PO DAILY [facility] Last Admin: 06/05/16 09:10 Dose: 1 each Tamsulosin HCl (Flomax) 0.4 mg PO DAILY [facility] Last Admin: 06/05/16 09:10 Dose: 0.4 mg Warfarin Sodium (Pharmacy To Dose - Warfarin) 1 dose .XX ASDIRECTED [facility] Zolpidem Tartrate (Ambien) 5 mg PO BEDTIME PRN PRN Reason: Sleep Last Admin: 06/04/16 23:43 Dose: 5 mg Discontinued Medications Dextrose/Water (Dextrose 50% In Water) 50 ml IVPUSH ONETIME ONE Stop: 06/03/16 16:37 Last Admin: 06/03/16 16:50 Dose: 50 ml Dextrose/Water (Dextrose 50% In Water) 25 ml IVPUSH ONETIME ONE Stop: 06/03/16 22:08 Last Admin: 06/03/16 22:40 Dose: 25 ml Potassium Chloride/Dextrose/Sod Cl (D5 1/2 Ns W/ 20 Meq/L Kcl) Confirm Administered Dose 1,000 mls @ as directed .ROUTE .STK-MED ONE Stop: 06/03/16 16:44 Last Admin: 06/03/16 17:32 Dose: 999 ml Sodium Chloride (Normal Saline) 1,000 mls @ 999 mls/hr IV .BOLUS ONE Stop: 06/03/16 18:43 Last Admin: 06/03/16 18:05 Dose: 999 mls/hr Lorazepam (Ativan) Confirm Administered Dose 2 mg .ROUTE .STK-MED ONE Stop: 06/03/16 16:45 Last Admin: 06/03/16 16:48 Dose: 2 mg No Warfarin (Today ) 0 each PO ONETIME ONE Stop: 06/04/16 14:01 Last Admin: 06/04/16 14:09 Dose: Not Given Sodium Chloride (Saline Flush) 10 ml FLUSH ASDIRECTED PRN PRN Reason: Keep Vein Open - Exam General: Reports: alert, oriented Neck: Reports: supple Lungs: Reports: Decreased breath sounds, Wheezing (mild) Cardiovascular: Reports: regular rhythm Abdomen: Reports: bowel sounds present, soft, no tenderness, other (morbidly obese) Skin: Reports: warm, dry Neurological: Reports: no new focal deficit Psy/Mental Status: Reports: alert, normal affect, normal mood *Q Meaningful Use (DIS) - VTE *Q VTE Criteria *Q: - Stroke *Q Stroke Criteria *Q: - AMI *Q AMI Criteria *Q:
[2016-06-05] MEDS ORDERED: Warfarin 2 MG Tab PO ONE (14:00)
== END 2016-06-05 12:43 | disposition home or self-care (01) ==
LOC: DL.ED 16:37 → UNDOADMOB 19:41 → DL.MS 19:41
PROVIDERS: ADMIT Internal Medicine; ATTEND Internal Medicine
DX: G93.40 Encephalopathy, unspecified (principal); T14.8 Other injury of unspecified body region; E86.0 Dehydration; E11.649 Type 2 diabetes mellitus with hypoglycemia without coma; J44.9 Chronic obstructive pulmonary disease, unspecified; Z79.82 Long term (current) use of aspirin; Z79.01 Long term (current) use of anticoagulants; Z79.899 Other long term (current) drug therapy
CPT/HCPCS: 36415; 70450; 71010; 80048; 80053; 80305; 81001; 82140; 82150; 82550; 82553; 82962; 83605; 83690; 83880; 84484; 85025; 85610; 87040; 93005; 93010; 96361; 96365; 96366; 96375; 96376; 97161; 97165; 99285; A9270; G0378; G0480; J1815; J2060; J3480; J7030; J7620; 96374; 99217; 99225; J7060

== ENCOUNTER 2016-06-15 17:50 | Emergency (ER) | payer MEDICARE, OTHER ==
[2016-06-15] MEDS ORDERED: Sodium Chloride 0.9% 10 ML Syringe FLUSH PRN (18:10)
[2016-06-15] MEDS ORDERED: Calcium Gluconate 10% 1 GM/10 ML SDV IVPUSH ONE (18:59)
[2016-06-15] MEDS ORDERED: Ondansetron 4 MG/2 ML SDV IV ONE (19:09)
[2016-06-15] MEDS ORDERED: Morphine 2 MG/ML Syringe IVPUSH ONE ×2 (19:09→20:44)
[2016-06-15 21:03] VITALS: BP 123/59
--- NOTE | 2016-06-18 10:21 | ER ---
SUBJECTIVE: The patient is an 81-year-old male, who is a patient of Dr. Davidson. The patient has known previous bladder cancer, has multiple chronic health issues, including COPD, AFib, chronic shortness of breath with lung resection, urinary retention, diabetes, obesity. Bladder, lung, and prostate cancer. He apparently has only 1/3 of his right lung per his daughter. He went to see Dr. Davidson today for abdominal discomfort and increased girth, swelling, some shortness of breath because of the abdominal distention. Dr. Davidson did some labs in clinic and it showed a potassium of 6.1, it showed creatinine of 5.5, with some elevated BUN, all of these were quite markedly changed from previous, where they were mostly normal, and he found that the patient was in acute renal failure. Dr. Davidson states that he did put a catheter in the patient's bladder in clinic and only got back 200 mL of concentrated urine, and it appears that the patient is not passing much urine. The patient denies chest pain. He does have some shortness of breath. He has some abdominal discomfort, mostly increased girth, very uncomfortable. He has swelling of his legs. One of his daughter states that his diuretic was stopped about 1 month ago and he used to take 20 mg of Lasix. He denies any new falls or trauma. PAST MEDICAL HISTORY: Significant for AFib and chronic anticoagulation therapy, glaucoma, COPD with chronic shortness of breath, lung resection with lobectomy, apparently having 1/3 of his right lung left. COPD, urinary retention, arthritis, knee replacement, back surgery, morbid obesity, diabetes. Cancer of the bladder, lung, and prostate. CURRENT MEDICATIONS: Include: 1. Docusate 100 mg p.o. daily. 2. Flomax 0.4 mg p.o. at bedtime. 3. VESIcare 10 mg p.o. daily. 4. Dilacor XR 240 mg p.o. daily. 5. Warfarin 2.5 mg p.o. daily. 6. [place]-3 fish oil 1000 mg p.o. daily. 7. Albuterol 2.5 mg nebs q.4 hours p.r.n. 8. Aspirin 81 mg p.o. daily. 9. Pulmicort 0.5 mg nebs b.i.d. 10.Perforomist 20 mcg neb b.i.d. 11.Multivitamins p.o. daily. ALLERGIES: He denies being allergic to no medications. REVIEW OF SYSTEMS: Fatigue, lethargy, decreased strength, general weakness, worsening of shortness of breath with increased abdominal girth and distention. Recent swelling more than normal of his lower extremities with a history of being off his diuretic. Denies chest pain. Denies nausea or vomiting. He does have chronic leg pain. He has chronic arthritic pain and back pain. SOCIAL HISTORY: He has family looking on him. He is a former smoker for 40 years. He last used this year. He does use coffee and tea. He has no alcohol or drug use. OBJECTIVE: Vital Signs: He is afebrile. Heart rate is 87, blood pressure is 126/79, respiratory rate 18, oxygen is 94% on room air. General: Very warm, appears his stated age. His daughter has offered most of the history, although he is helpful and answers questions and is cooperative. Head: He is normocephalic, atraumatic. Chest: Somewhat distant breath sound, somewhat coarse. CV: RRR. Abdomen: Very large and protuberant. Very taut, likely has ascites, somewhat tympanic. It obviously pushes up on his lungs, and when he lays flat, it makes him fairly short of breath. It appears atraumatic. He does have an umbilical hernia. Lower Extremities: He has 2+ pitting edema. No calf tenderness. LABORATORY DATA: He had a CBC and a BMP done in clinic. The remarkable findings on those labs include an elevated potassium of 6.1, an elevated creatinine of 5.5, with an elevated BUN as well. In the ER, he did have further labs evaluated including an amylase, which was 129, and high. Ketones were negative. Ammonia level was elevated at 42. Lactic acid was normal at 1.2. CK was elevated at 4.7, CK-MB at 6.6, and troponin 0.03. EKG is pending. EMERGENCY ROOM COURSE: An IV was placed, further blood was taken to obtain further labs. Noncontrast abdominal pelvic CAT scan was ordered to further assess the very large and protuberant, somewhat painful ABD. Because of chronic pain, the patient was given 2 mg of morphine as well as some Zofran to prevent any nausea or vomiting. He was also given some calcium gluconate because of his elevated potassium of 6.1. The patient did not receive IV fluids. He already appears to be fluid overloaded and he is so protuberant and is causing him to have shortness of breath and there is fear he will become even more short of breath. Dr. Becker at [facility] ER, agreed to accept the patient in transfer after the patient and his labs and workup were discussed with him. The patient will be sent by ground ambulance ALS, and is doing fairly well and somewhat improved now. I did discuss the workup and the need for transfer with him and his attendant family. ASSESSMENT: 1. Acute renal failure with a creatinine of 5.5. 2. Hyperkalemia with potassium 6.1. 3. Abdominal distention and discomfort, causing shortness of breath. CT of abdomen and pelvis ordered, results pending, but we will not hold transfer for results. 4. Dyspnea, in patient with chronic obstructive pulmonary disease, worsened with protuberant abdomen. 5. Bilateral venous stasis. 6. Hypertension, well controlled. PLAN: Transfer the patient to [facility] to Dr. Becker in the ER. All labs, workup, and CAT scan results will be sent now and as further sent when they become available to [facility] ER. The patient is improved, stable for transfer. He requires higher level of care with Nephrology, possibly he will need his abdominal region tapped depending if it is acidic or not. [facility] /[id number]
--- NOTE | 2016-07-09 08:17 | EKG ---
06/15/2016- ENEDELIA CANNON - This is a 12-lead EKG showing sinus or ectopic atrial rhythm with right bundle branch block. Normal SD interval, QRS duration wide, and no significant ST-T changes. [facility] /[id number]
== END 2016-06-15 20:53 ==
LOC: DL.ED 17:50
DX: N17.9 Acute kidney failure, unspecified (principal); E87.5 Hyperkalemia; R14.0 Abdominal distension (gaseous); I87.8 Other specified disorders of veins; I10 Essential (primary) hypertension; I48.91 Unspecified atrial fibrillation; J44.9 Chronic obstructive pulmonary disease, unspecified; E66.01 Morbid (severe) obesity due to excess calories; E11.9 Type 2 diabetes mellitus without complications
CPT/HCPCS: 36415; 74176; 82009; 82140; 82150; 82550; 82553; 83605; 84484; 87040; 93005; 93010; 96374; 96375; 96376; 99285; J0610; J2270; J2405; J7050; 99284